=== PATIENT | female | born 1960 | race Caucasian/White ===

== ENCOUNTER 2017-06-28 13:34 | Outpatient (CLI) | payer BC ==
--- NOTE | 2017-06-28 14:10 | XRay Report ---
Right foot 3 views: History: Pain. Findings: There is hallux valgus noted of the metatarsophalangeal joint great toe with mild degenerative changes. There is osteopenia. No periosteal reaction, lytic lesion or soft tissue calcification. Mild arthritic changes of the interphalangeal joints second third fourth and fifth toes. Impression: Arthritic changes of the metatarsophalangeal joint great toe and at the interphalangeal joint second, third, fourth and fifth toes.
== END 2017-06-28 13:35 | disposition home or self-care (01) ==
LOC: XRAY 13:34
PROVIDERS: ATTEND Internal Medicine
DX: M19.071 Primary osteoarthritis, right ankle and foot (principal)

== ENCOUNTER 2017-07-03 14:36 | Outpatient (CLI) | payer BC ==
--- NOTE | 2017-07-04 15:50 | Mammography Report ---
BILATERAL DIGITAL SCREENING MAMMOGRAM with CAD: 07/03/17 14:36:00 CLINICAL: Routine screening. COMPARISON:None. She doesn't remember where she previously had a mammogram. FINDINGS: The breasts are heterogeneously dense, which may obscure small masses. No mass, architectural distortion or suspicious calcifications. IMPRESSION: No mammographic evidence of malignancy. BI-RADS CATEGORY: 1 - - Negative RECOMMENDATION: Routine mammographic screening in one year. COMMENT: Patient follow-up letters are generated by our [email or web address] application.
== END 2017-07-03 14:37 | disposition home or self-care (01) ==
LOC: MAMMO 14:36
PROVIDERS: ATTEND Internal Medicine
DX: Z12.31 Encounter for screening mammogram for malignant neoplasm of breast (principal)
CPT/HCPCS: 77067

== ENCOUNTER 2018-06-28 08:51 | Outpatient (CLI) | payer BC ==
[2018-06-28 10:34] LABS: Basophils % (Auto) 0.7 % (0.0-1.8); Eosinophils # (Auto) 0.1 K/mm3 (0.0-0.4); Eosinophils % (Auto) 2.4 % (0.0-4.3); Hematocrit 40.5 % (30.3-42.9); Hemoglobin 13.4 gm/dl (10.1-14.3); Lymphocytes # (Auto) 1.3 K/mm3 (1.2-5.4); Lymphocytes % (Auto) 36.4 % (13.4-35.0); Mean Corpuscular HGB Conc 33 % (30-34); Mean Corpuscular Volume 93 fl (79-97); Monocytes # (Auto) 0.2 K/mm3 (0.0-0.8); Monocytes % (Auto) 5.8 % (0.0-7.3); Platelet Count 163 K/mm3 (140-440); Red Blood Count 4.35 M/mm3 (3.65-5.03)
[2018-06-28 10:41] LABS: Alanine Aminotransferase 13 units/L (7-56); Albumin 4.3 g/dL (3.9-5); BUN/Creatinine Ratio 22; Blood Urea Nitrogen 11 mg/dL (7-17); Calcium 9.3 mg/dL (8.4-10.2); Chol/HDL Ratio 5.09 %; HDL Cholesterol 43 mg/dL (40-59); Hemolysis Index 5; LDL Cholesterol,Direct 143 mg/dL (50-130)
== END 2018-06-28 08:52 | disposition home or self-care (01) ==
LOC: LAB 08:51
PROVIDERS: ATTEND Internal Medicine
DX: E78.2 Mixed hyperlipidemia (principal); E55.9 Vitamin D deficiency, unspecified; M85.80 Other specified disorders of bone density and structure, unspecified site; R73.9 Hyperglycemia, unspecified
CPT/HCPCS: 36415; 80053; 80061; 83036; 84443; 85025

== ENCOUNTER 2018-10-03 08:19 | Outpatient (CLI) | payer BC ==
[2018-10-03 11:26] LABS: Chol/HDL Ratio 4.68 %
== END 2018-10-03 08:20 | disposition home or self-care (01) ==
LOC: LAB 08:19
PROVIDERS: ATTEND Internal Medicine
DX: E78.2 Mixed hyperlipidemia (principal); R73.9 Hyperglycemia, unspecified
CPT/HCPCS: 36415; 80061; 83036

== ENCOUNTER 2019-02-07 11:32 | Outpatient (CLI) | payer BC ==
--- NOTE | 2019-02-07 13:06 | Vascular Lab Report ---
DUPLEX DOPPLER LOWER EXTREMITY VEINS, RIGHT INDICATION: R60.9 EDEMA UNSPECIFIED. Right ankle pain/edema for one week. No history of trauma. History of hyperl ipidemia. TECHNIQUE: Duplex doppler imaging was performed through the veins of the right lower extremity using venous comp ression and other maneuvers. COMPARISON: No relevant prior imaging study available. FINDINGS: Right Common femoral vein: Negative. Right Superficial femoral vein: Negative. Right Popliteal vein: Negative. Right Calf veins: Negative. Additional findings: Soft tissue changes as edema suspected about the ankle. IMPRESSION: No sonographic evidence for DVT in the right lower extremity in this patient with lower leg/ankle edema suspected, as described. Thank you for the opportunity to participate in this patient's care. Signer Name: Mathew Villalobos Signed: 02/07/2019 1:02 PM Workstation Name: [id number]
== END 2019-02-07 11:33 | disposition home or self-care (01) ==
LOC: VAS 11:32
PROVIDERS: ATTEND Internal Medicine
DX: R60.9 Edema, unspecified (principal); E78.5 Hyperlipidemia, unspecified